=== PATIENT | female | born 1995 | race Caucasian/White ===

== ENCOUNTER → 2023-04-03 | Outpatient (REF) | payer OTHER | LOC: M PLALAB 09:17 | PROVIDERS: ATTEND Advanced Practice Midwife | DX: Z12.4 Encounter for screening for malignant neoplasm of cervix (principal) | CPT/HCPCS: G0123; G0463 ==

== ENCOUNTER → 2023-09-13 | Outpatient (CLI) | payer OTHER ==
[2023-09-13 14:23] LABS: BASO % 0.4 % (0.0-1.0); EOS # 0.2 10^3/uL (0.0-0.5); EOS % 2.4 % (0.0-3.0); HEMOGLOBIN 13.2 g/dl (12.0-15.5); LYMPH % 27.1 % (24.0-44.0); MEAN CORPUSCULAR HEMOGLOBIN 27.7 pg (27.0-33.0); MEAN CORPUSCULAR HGB CONC 31.4 g/dl (32.0-36.5); MEAN CORPUSCULAR VOLUME 88.2 fl (80.0-96.0); MONO # 0.6 10^3/uL (0.0-0.8); MONO % 8.5 % (2.0-8.0); NEUTROPHILS # 4.5 10^3/uL (1.5-8.5); NEUTROPHILS % 61.3 % (36.0-66.0); PLATELET COUNT, AUTOMATED 193 10^3/uL (150-450); RED BLOOD COUNT 4.76 10^6/uL (4.00-5.40); WHITE BLOOD COUNT 7.4 10^3/uL (4.0-10.0)
[2023-09-13 14:30] LABS: FREE T4 1.12 NG/DL (0.89-1.76)
[2023-09-13 14:31] LABS: ALBUMIN 3.5 G/DL (3.2-5.2); ALKALINE PHOSPHATASE 55 U/L (46-116); ALT/SGPT 17 U/L (7.0-40); AST/SGOT 9 U/L (<34); BILIRUBIN,TOTAL 0.6 MG/DL (0.3-1.2); BLOOD UREA NITROGEN 13 MG/DL (9-23); CALCIUM LEVEL 8.8 MG/DL (8.5-10.1); CARBON DIOXIDE LEVEL 28 MMOL/L (20-31); CHLORIDE LEVEL 108 MMOL/L (98-107); CHOLESTEROL LEVEL 137 MG/DL (<200); CHOLESTEROL RISK RATIO 3.23 (<5); CREATININE FOR GFR 0.74 MG/DL (0.55-1.30); GLOMERULAR FILTRATION RATE > 60.0 (>60); GLUCOSE, FASTING 96 MG/DL (60-100); HDL CHOLESTEROL 42.3 MG/DL (>40); LDL CHOLESTEROL 73.7 MG/DL (<100); NON-HDL-C 94.7 MG/DL; POTASSIUM SERUM 4.7 MMOL/L (3.5-5.1); SODIUM LEVEL 142 MMOL/L (136-145); THYROID STIMULATING HORMONE 0.621 uIU/ML (0.55-4.78); TOTAL PROTEIN 6.8 G/DL (5.7-8.2); TRIGLYCERIDES LEVEL 105 MG/DL (<150)
[2023-09-13 14:32] LABS: TOTAL 25(OH) VITAMIN D 28.9 NG/ML (20.0-100.0)
[2023-09-13 15:38] LABS: HEMOGLOBIN A1c 5.4 % (4.0-6.0)
== END ==
LOC: M PLALAB 09:50
PROVIDERS: ATTEND Nurse Practitioner Family
DX: E55.9 Vitamin D deficiency, unspecified (principal); R63.5 Abnormal weight gain; Z13.1 Encounter for screening for diabetes mellitus; Z13.220 Encounter for screening for lipoid disorders
CPT/HCPCS: 36415; 80053; 80061; 82306; 83036; 84439; 84443; 85025; G0463

== ENCOUNTER → 2025-05-27 | Outpatient (REF) | payer OTHER ==
[2025-05-30 08:57] LABS: HPV APTIMA Not Detected (Not Detected)
== END ==
LOC: M PLALAB 12:19
PROVIDERS: ATTEND Advanced Practice Midwife
DX: Z12.4 Encounter for screening for malignant neoplasm of cervix (principal)
CPT/HCPCS: 87624; G0123

== ENCOUNTER → 2025-07-20 | Outpatient (CLI) | payer OTHER ==
[~2025-07-20] MED LIST: FLUC150T9 PO; IBUP1TAB7 PO; VITA250T26 PO
[2025-07-20 14:22] LABS: ESTIMATED AVERAGE GLUCOSE 111.0 MG/DL (60-110)
[2025-07-20 14:30] LABS: FREE T4 1.16 NG/DL (0.89-1.76); PROLACTIN 9.30 NG/ML
[2025-07-20 14:36] LABS: LUTEINIZING HORMONE < 0.1 mIU/ML
[2025-07-20 14:37] LABS: ESTRADIOL 146.3 PG/ML
[2025-07-22 01:18] LABS: DEHYDROEPIANDROSTERONE SULFATE 149.0 mcg/dL (19-237)
[2025-07-26 12:52] LABS: ANTI MULLERIAN HORMONE 1.05 ng/mL (0.36-10.07)
[2025-07-27 17:07] LABS: TESTOSTERONE FREE (DIRECT) 3.8 pg/mL (0.1-6.4); TESTOSTERONE TOTAL FOR T&D 38.0 ng/dL (2-45)
[2025-07-28 04:57] LABS: 17 HYDROXY PROGESTERONE 87.0 ng/dL
== END ==
LOC: M PLALAB 11:06
PROVIDERS: ATTEND Advanced Practice Midwife
DX: O36.80X0 Pregnancy with inconclusive fetal viability, not applicable or unspecified (principal); N92.6 Irregular menstruation, unspecified; O26.859 Spotting complicating pregnancy, unspecified trimester; Z3A.00 Weeks of gestation of pregnancy not specified; O26.899 Other specified pregnancy related conditions, unspecified trimester

== ENCOUNTER 2025-07-22 10:42 | Day surgery (SDC) | payer OTHER ==
[~2025-07-22] VITALS: Ht 167.6 cm; Wt 113.9 kg
[2025-07-22] MEDS ORDERED: VITA250T26 PO (11:11)
[2025-07-22] MEDS ORDERED: FLUC150T9 PO (11:11)
[2025-07-22] MEDS: DOXYCYCLINE HYCLATE 100 MG TABLET PO ONE (16:03)
[2025-07-22 16:08] LABS: PLATELET COUNT, AUTOMATED 218 10^3/uL (150-450)
[2025-07-22] MEDS: DOXYCYCLINE HYCLATE 100 MG in DEXTROSE 5% (D5W) MINI-BAG PLU 100 ML IV ONE (16:55)
[2025-07-22] MEDS ORDERED: ROCURONIUM BROMIDE 50MG/5ML VIAL As Ordered ONE (16:57)
[2025-07-22] MEDS ORDERED: LIDOCAINE 2% 100 MG/5 ML SDV (FOR ANES.) As Ordered ONE (16:57)
[2025-07-22] MEDS ORDERED: MIDAZOLAM INJ 2 MG/2 ML VIAL As Ordered ONE (16:57)
[2025-07-22] MEDS ORDERED: ONDANSETRON 4MG/2ML VIAL As Ordered ONE (16:57)
[2025-07-22] MEDS ORDERED: dexAMETHasone 4 MG/ML 1 ML VIAL As Ordered ONE (16:57)
[2025-07-22] MEDS ORDERED: KETOROLAC 30 MG/ML 1 ML VIAL As Ordered ONE (16:57)
[2025-07-22] MEDS ORDERED: SUGAMMADEX SODIUM 200 MG/2 ML VIAL As Ordered ONE (17:06)
[2025-07-22] MEDS ORDERED: ACETAMINOPHEN 1000MG/100ML IV BAG As Ordered ONE (17:06)
[2025-07-22] MEDS: LIDOCAINE 1% SDV 30 ML VIAL As Ordered ONE (17:24)
[2025-07-22] MEDS: SILVER NITRATE APPLICATOR (1 = QTY 10) As Ordered ONE (17:27)
[2025-07-22] MEDS ORDERED: LR 1,000 ML IV SCH (17:40)
[2025-07-22] MEDS ORDERED: ONDANSETRON 4MG/2ML VIAL IV PRN (17:40)
[2025-07-22] MEDS ORDERED: HYDROMORPHONE HCL 0.5 MG/0.5 ML SYRINGE IV PRN (17:40)
[2025-07-22] MEDS ORDERED: IBUP1TAB7 PO (17:41)
[2025-07-22 18:35] VITALS: BP 131/61; TEMP 97.1; O2SAT 100
== END 2025-07-22 18:49 | disposition home or self-care (01) ==
LOC: M SDC 10:42
PROVIDERS: ATTEND Obstetrics & Gynecology
DX: O02.1 Missed abortion (principal); J45.909 Unspecified asthma, uncomplicated; E66.9 Obesity, unspecified; Z79.899 Other long term (current) drug therapy
CPT/HCPCS: 36415; 59820; 85027; 86850; 86900; 86901; 86920; 88305; J0131; J1100; J1271; J1885; J2250; J2405; J2765; J3010